=== PATIENT | female | born 1995 | race African-American/Black ===

== ENCOUNTER 2025-01-10 15:20 | Emergency (ER) | payer BC, OTHER ==
[2025-01-10 16:06] LABS: Glucose, Urine (Dipstick) Normal (Negative); Leukocyte 500 (Negative); Protein, Urine (Dipstick) 30 mg/dl (Neg-Trace); Specific Gravity, Urine 1.025 (1.005-1.030)
[2025-01-10 16:09] LABS: Pregnancy Test - Urine (BHCG) Negative (Negative); Pregu Control Background? CLEAR/WHITE (CLR/WHITE); Pregu Control Bar Appear? YES (CONTROL BAR)
[2025-01-10 16:58] LABS: Bacteria/HPF 3+ HPF (None Seen); CAUTI Indications for Culture Pelvic or flank pain; WBC/HPF 21-50 HPF (0-3)
[2025-01-10 16:59] LABS: Mucous/LPF 2+ LPF (<2+)
[2025-01-10 17:00] LABS: Urine Culture Reflex Yes Yes
[2025-01-11 00:58] LABS: Chlam.trachomatis by PCR,Urine Not Detected (NotDetected); GC N.gonorrhoeae PCR,UrineVOID Not Detected (NotDetected)
== END 2025-01-10 16:31 | disposition home or self-care (01) ==
LOC: CSHERS 15:20
DX: N39.0 Urinary tract infection, site not specified (principal)
CPT/HCPCS: 36415; 81001; 81025; 84702; 87086; 87491; 87591; 99284